=== PATIENT | female | born 1955 | race Caucasian/White ===

== ENCOUNTER 2016-07-03 01:39 | Emergency (ER) | payer SELFPAY ==
[~2016-07-03] VITALS: Ht 162.6 cm; Wt 68.0 kg
[~2016-07-03 01:39] MED LIST: LISI-603 PO; [UNRECOGNIZED DRUG - REMARK]
--- NOTE | 2016-07-03 01:55 | NUR ---
PT A/OX4 BREATHING EFFORTLESSLY ON ROOM AIR, PT STATES SHE HAS BEEN HAVING LEFT UPPER QUADRANT PAIN X 2 DAYS WITH ONE EPISODE OF VOMITING, PT ON MONITOR, IV PLACED, MD IN ROOM, PT IN GOWN, URINE COLLECTED, WILL CONTINUE TO MONITOR.
[2016-07-03] MEDS ORDERED: IV NS 0.9% 250 ML IV ONE (02:15)
[2016-07-03] MEDS ORDERED: IOHEXOL-350 100 ML VIAL IV ONE (02:15)
[2016-07-03] MEDS ORDERED: HYDROMORPHONE 1 MG/1 ML DISP.SYRIN ONE (02:21)
[2016-07-03] MEDS ORDERED: ONDANSETRON HCL/PF 4 MG/2 ML VIAL ONE ×2 (02:22→05:14)
[2016-07-03] MEDS ORDERED: IV NS 0.9% 1,000 ML ONE (02:22)
[2016-07-03] MEDS ORDERED: IV SET PRIMARY 1 EA INFUS.SET MC ONE (02:22)
[2016-07-03] MEDS ORDERED: ONDANSETRON HCL/PF 4 MG/2 ML VIAL IVP ONE (02:30)
[2016-07-03] MEDS ORDERED: HYDROMORPHONE INJ 2 MG/ML DISP.SYRIN IV ONE (02:30)
[2016-07-03] MEDS ORDERED: IV NS 0.9% 1,000 ML BAG IV ONE (02:30)
[2016-07-03 02:36] LABS: BASOPHILS % (AUTO) 0.3 % (0.0-2.0); EOSINOPHILS # (AUTO) 0.1 /CMM (0.0-0.7); EOSINOPHILS % (AUTO) 1.7 % (0.0-6.0); HEMATOCRIT 39 % (33-45); HEMOGLOBIN 13.3 g/dL (11.5-14.8); LYMPHOCYTES # (AUTO) 0.7 /CMM (0.8-4.8); MEAN CORPUSCULAR HEMOGLOBIN 29 PG (26.0-33.0); MEAN CORPUSCULAR HGB CONC 34 g/dl (31.0-36.0); MEAN CORPUSCULAR VOLUME 85 fL (82-100); MONOCYTES # (AUTO) 0.4 /CMM (0.1-1.30); MONOCYTES % (AUTO) 6.3 % (2.0-12.0); NEUTROPHILS # (AUTO) 5.4 /CMM (1.8-8.9); NEUTROPHILS % (AUTO) 81.7 % (43.0-81.0); PLATELET COUNT (AUTO) 255 /CMM (150-450); RDW COEFFICIENT OF VARIATION 13.5 (11.5-15.0); RED BLOOD CELL COUNT(AUTO) 4.61 MIL/uL (4.0-5.2); WHITE BLOOD COUNT (AUTO) 6.7 K/uL (4.3-11.0)
[2016-07-03 02:47] LABS: CALCIUM, SERUM 8.4 mg/dL (8.5-10.1); CARBON DIOXIDE 25 mmol/L (21-32); CHLORIDE 104 mmol/L (98-107); CREATININE 0.8 mg/dL (0.6-1.3); GFR 73 mL/min (>60); GLUCOSE 122 mg/dL (74-106); POTASSIUM 3.6 mmol/L (3.5-5.1); SODIUM SERUM 139 mmol/L (136-145); UREA NITROGEN, BLOOD 10 mg/dL (7-18)
[2016-07-03 02:53] LABS: ALANINE AMINOTRANSFERASE 37 U/L (12-78); ALBUMIN 4.2 g/dL (3.4-5.0); ALKALINE PHOSPHATASE 109 U/L (46-116); ASPARTATE AMINOTRANSFERASE 29 U/L (15-37); BILIRUBIN,DIRECT 0.1 mg/dL (0.0-0.2); LIPASE 155 U/L (73-393); TOTAL PROTEIN, SERUM 8.1 g/dL (6.4-8.2)
[2016-07-03 02:54] LABS: TROPONIN I < 0.017 ng/mL (0.00-0.056)
[2016-07-03 03:04] LABS: INR 0.94 (0.87-1.13)
--- NOTE | 2016-07-03 03:47 | NUR ---
PT SLEEPING IN BED IN NO APPARENT DISTRESS, MD MADE AWARE WILL CONTINUE TO MONITOR.
[2016-07-03] MEDS ORDERED: BENZTROPINE MESYLATE (2MG/2ML) 2 MG/2 ML AMPUL IM ONE (05:30)
[2016-07-03] MEDS ORDERED: ONDANSETRON HCL/PF - ER 4 MG/2 ML VIAL IV ONE (05:30)
[2016-07-03] MEDS ORDERED: METOCLOPRAMIDE HCL 10 MG/2 ML VIAL IV ONE (05:30)
--- NOTE | 2016-07-03 05:34 | NUR ---
Patient discharged to home in stable condition. Written and verbal after care instructions given. Patient verbalizes understanding of instruction.IV removed. Catheter intact and site benign. Pressure and 4x4 applied to site. No bleeding noted.
[2016-07-03 05:35] VITALS: BP 124/84
== END 2016-07-03 05:35 | disposition home or self-care (01) ==
LOC: ER 01:41
DX: R10.12 Left upper quadrant pain (principal); R11.2 Nausea with vomiting, unspecified
CPT/HCPCS: 36415; 74160; 80048; 80076; 83690; 84484; 85025; 85730; 93005; 96361; 96374; 96375; 96376; 99285; A4606; J1170; J2405 ×2; J7030; J7050; Q9967; Z7610

== ENCOUNTER 2016-07-03 13:21 | Emergency (ER) | payer SELFPAY ==
[~2016-07-03] VITALS: Ht 162.6 cm; Wt 68.0 kg
--- NOTE | 2016-07-03 13:33 | NUR ---
PT CAME IN FOR ABD PAIN, WAS JUST HERE THIS MORNING WITH NO RELIEF. VSS. NAD NOTED. SAFETY AND COMFORT MEASURES PROVIDED. WILL MONITOR.
--- NOTE | 2016-07-03 13:40 | NUR ---
IV ACCESS STARTED. BLOOD DRAWN FOR LABS. PT MEDICATED ORDERED.
[2016-07-03] MEDS ORDERED: LIDOCAINE VISCOUS 2% UD 15 ML UDC ONE (13:45)
[2016-07-03] MEDS ORDERED: MAG HYDROX/AL HYDROX/SIMETH 30 ML UDC ONE (13:45)
[2016-07-03] MEDS ORDERED: ONDANSETRON HCL/PF 4 MG/2 ML VIAL ONE (13:45)
[2016-07-03] MEDS ORDERED: MORPHINE SULFATE INJ 4 MG/ML DISP.SYRIN ONE (13:45)
[2016-07-03] MEDS ORDERED: IV NS 0.9% 500 ML IV ONE (13:46)
[2016-07-03] MEDS ORDERED: IV SET PRIMARY 1 EA INFUS.SET MC ONE (13:46)
[2016-07-03] MEDS ORDERED: FAMOTIDINE/PF INJ 20 MG/2 ML VIAL IV ONE ×2 (13:46→14:00)
[2016-07-03 13:49] LABS: HEMATOCRIT 38 % (33-45); HEMOGLOBIN 12.7 g/dL (11.5-14.8); MEAN CORPUSCULAR HEMOGLOBIN 29 PG (26.0-33.0); MEAN CORPUSCULAR HGB CONC 34 g/dl (31.0-36.0); MEAN CORPUSCULAR VOLUME 86 fL (82-100); NEUTROPHILS % (AUTO) 74.5 % (43.0-81.0); PLATELET COUNT (AUTO) 253 /CMM (150-450); RDW COEFFICIENT OF VARIATION 12.8 (11.5-15.0); RED BLOOD CELL COUNT(AUTO) 4.41 MIL/uL (4.0-5.2); WHITE BLOOD COUNT (AUTO) 4.7 K/uL (4.3-11.0)
[2016-07-03 13:50] LABS: BASOPHILS % (AUTO) 0.2 % (0.0-2.0); EOSINOPHILS % (AUTO) 0.7 % (0.0-6.0); LYMPHOCYTES # (AUTO) 0.7 /CMM (0.8-4.8); LYMPHOCYTES % (AUTO) 15.9 % (20.0-44.0); MONOCYTES # (AUTO) 0.4 /CMM (0.1-1.30); MONOCYTES % (AUTO) 8.7 % (2.0-12.0); NEUTROPHILS # (AUTO) 3.6 /CMM (1.8-8.9)
[2016-07-03 13:57] LABS: CALCIUM, SERUM 8.4 mg/dL (8.5-10.1); CREATININE 0.8 mg/dL (0.6-1.3); POTASSIUM 3.8 mmol/L (3.5-5.1)
[2016-07-03] MEDS ORDERED: MORPHINE SULFATE INJ 2 MG/ML DISP.SYRIN IV ONE (14:00)
[2016-07-03] MEDS ORDERED: IV NS 0.9% 500 ML BAG IV ONE (14:00)
[2016-07-03] MEDS ORDERED: MAG HYDROX/AL HYDROX/SIMETH 30 ML UDC PO ONE (14:00)
[2016-07-03] MEDS ORDERED: LIDOCAINE VISCOUS 2% UD 15 ML UDC MM ONE (14:00)
[2016-07-03] MEDS ORDERED: ONDANSETRON HCL/PF 4 MG/2 ML VIAL IVP ONE (14:00)
[2016-07-03] MEDS ORDERED: ACETAMINOPHEN ES 500 MG TABLET ONE (14:03)
[2016-07-03] MEDS ORDERED: ACETAMINOPHEN 325 MG TABLET PO ONE (14:30)
[2016-07-03 14:40] VITALS: BP 139/87
--- NOTE | 2016-07-03 14:46 | NUR ---
IV removed. Catheter intact and site benign. Pressure and 4x4 applied to site. No bleeding noted.Patient discharged to home in stable condition. Written and verbal after care instructions given. Patient verbalizes understanding of instruction.
== END 2016-07-03 14:51 | disposition home or self-care (01) ==
LOC: ER 13:23
DX: K29.70 Gastritis, unspecified, without bleeding (principal); I10 Essential (primary) hypertension
CPT/HCPCS: 36415; 80048; 85025; 96361; 96374; 96375; 99285; A4606; J2270; J2405; J3490; J7040; Z7610

== ENCOUNTER 2021-07-26 20:46 | Emergency (ER) | payer MEDICAID ==
[~2021-07-26] VITALS: Ht 165.1 cm; Wt 72.6 kg
[~2021-07-26 20:46] MED LIST changes: +ASPI-1420 PO; +HYDR25TA4 PO; +HYDR453.3 TP; -LISI-603 PO; +LISI10TA29 PO; +LISI20TA30 PO
--- NOTE | 2021-07-26 21:20 | NUR ---
BIBS FROM HOME C/O R FOOT PAIN. PT AMBULATORY WITH STEADY GAIT. A/OX4. TOLERATING R/A WELL WITH NO SOB.
--- NOTE | 2021-07-26 21:37 | NUR ---
BUYER GRAIN AT PT'S BEDSIDE
[2021-07-26] MEDS ORDERED: IBUP-1955 PO (22:32)
[2021-07-26] MEDS ORDERED: IBUPROFEN 600 MG TABLET ONE (22:35)
[2021-07-26 22:37] VITALS: BP 139/71
--- NOTE | 2021-07-26 22:40 | NUR ---
Patient discharged to home in stable condition. Written and verbal after care instructions given. Patient verbalizes understanding of instruction.
[2021-07-26] MEDS ORDERED: IBUPROFEN 600 MG TABLET PO ONE (23:00)
== END 2021-07-26 23:52 | disposition home or self-care (01) ==
LOC: ER 20:52 → MERGE 20:52 → ER 23:52
DX: M79.671 Pain in right foot (principal); I10 Essential (primary) hypertension; Z79.899 Other long term (current) drug therapy
CPT/HCPCS: 73630-TC

== ENCOUNTER 2021-09-02 19:03 | Emergency (ER) | payer MEDICAID ==
[~2021-09-02] VITALS: Ht 165.1 cm; Wt 72.6 kg
[~2021-09-02 19:03] MED LIST changes: +IBUP-1955 PO
[2021-09-02] MEDS ORDERED: CLIN300C12 PO (20:25)
--- NOTE | 2021-09-02 20:29 | NUR ---
Patient discharged to home in stable condition. Written and verbal after care instructions given. Patient verbalizes understanding of instruction.
[2021-09-02 20:30] VITALS: BP 180/89
== END 2021-09-02 20:30 | disposition home or self-care (01) ==
LOC: ER 19:14
DX: H92.01 Otalgia, right ear (principal); I10 Essential (primary) hypertension; Z79.899 Other long term (current) drug therapy

== ENCOUNTER 2022-12-24 22:05 | Emergency (ER) | payer MEDICARE, OTHER ==
[~2022-12-24] VITALS: Ht 167.6 cm; Wt 68.0 kg
[~2022-12-24 22:05] MED LIST changes: +CEPH500C2 PO; +CLIN300C12 PO
[2022-12-24 22:42] VITALS: TEMP 98.2
[2022-12-24] MEDS ORDERED: MORPHINE SULFATE INJ 2 MG/ML DISP.SYRIN ONE (22:59)
[2022-12-24] MEDS ORDERED: IV NS 0.9% 1,000 ML BAG IV ONE (23:00)
[2022-12-24] MEDS ORDERED: ONDANSETRON HCL/PF 4 MG/2 ML VIAL IVP ONE (23:00)
[2022-12-24] MEDS ORDERED: MORPHINE SULFATE INJ 2 MG/ML DISP.SYRIN IV ONE (23:00)
[2022-12-24 23:23] LABS: BASOPHILS # (AUTO) 0.1 K/uL (0.0-0.2); BASOPHILS % (AUTO) 0.8 % (0.0-2.0); EOSINOPHILS # (AUTO) 0.1 K/uL (0.0-0.7); EOSINOPHILS % (AUTO) 2.2 % (0.0-6.0); HEMATOCRIT 37 % (33-45); HEMOGLOBIN 12.3 g/dL (11.5-14.8); LYMPHOCYTES # (AUTO) 1.9 K/uL (0.8-4.8); LYMPHOCYTES % (AUTO) 29.8 % (20.0-44.0); MEAN CORPUSCULAR HEMOGLOBIN 29 PG (26.0-33.0); MEAN CORPUSCULAR HGB CONC 33 g/dl (31.0-36.0); MEAN CORPUSCULAR VOLUME 87 fL (82-100); MONOCYTES # (AUTO) 0.5 K/uL (0.1-1.30); MONOCYTES % (AUTO) 8.3 % (2.0-12.0); NEUTROPHILS # (AUTO) 3.8 K/uL (1.8-8.9); NEUTROPHILS % (AUTO) 58.9 % (43.0-81.0); PLATELET COUNT (AUTO) 296 K/uL (150-450); RED BLOOD CELL COUNT(AUTO) 4.23 MIL/uL (4.0-5.2); RED CELL DISTRIBUTION WIDTH 13.8 % (11.5-15.0); WHITE BLOOD COUNT (AUTO) 6.5 K/uL (4.3-11.0)
[2022-12-24 23:25] LABS: APPEARANCE,URINE SLIGHTLY CLOUDY (CLEAR); BILIRUBIN,URINE NEGATIVE (NEGATIVE); BLOOD, URINE 1+ Ery/uL (NEGATIVE); COLOR,URINE YELLOW (YELLOW); KETONES,URINE NEGATIVE (NEGATIVE); LEUKOCYTE ESTERASE ,URINE 1+ (NEGATIVE); NITRITE, URINE POSITIVE (NEGATIVE); PH,URINE 5.5 (5.0-8.0); PROTEIN,URINE NEGATIVE (NEGATIVE); UGLUCOSE NEGATIVE (NEGATIVE); UROBILINOGEN,URINE 0.2 EU/dL (0.2)
[2022-12-24 23:31] LABS: CALCIUM, SERUM 9.2 mg/dL (8.5-10.1); CREATININE 0.6 mg/dL (0.6-1.3); POTASSIUM 3.7 mmol/L (3.5-5.1); PREGNANCY TEST URINE QUAL NEGATIVE (NEGATIVE)
[2022-12-24 23:39] LABS: ALBUMIN 3.8 g/dL (3.4-5.0); BILIRUBIN,DIRECT 0.1 mg/dL (0.0-0.2); BILIRUBIN,TOTAL 0.5 mg/dL (0.2-1.0); TOTAL PROTEIN, SERUM 7.7 g/dL (6.4-8.2)
[2022-12-24 23:48] LABS: ADD URINE CULTURE YES; BACTERIA,URINE 3+ /HPF (None Seen); WBC,URINE 21-50 /HPF (0-3)
[2022-12-25] MEDS ORDERED: CEPH500C2 PO (00:13)
[2022-12-25] MEDS ORDERED: OMEP40CA21 PO (00:13)
[2022-12-25 00:24] VITALS: BP 121/76; O2SAT 98
== END 2022-12-25 00:24 | disposition home or self-care (01) ==
LOC: ER 22:12
DX: N39.0 Urinary tract infection, site not specified (principal); K29.70 Gastritis, unspecified, without bleeding; I10 Essential (primary) hypertension
CPT/HCPCS: 99283; 96374; 96361; 85025; 80048; 83690; 80076; 84703; 81001; 36415; J2405; J7030; 87086-TC; J2270

== ENCOUNTER 2023-08-17 10:52 | Emergency (ER) | payer MEDICARE, OTHER ==
[~2023-08-17] VITALS: Ht 165.1 cm; Wt 68.0 kg
[~2023-08-17 10:52] MED LIST changes: +OMEP40CA21 PO
[2023-08-17] MEDS ORDERED: IBUPROFEN 600 MG TABLET ONE (11:26)
[2023-08-17] MEDS ORDERED: BENZONATATE 100 MG CAPSULE PO ONE (11:26)
[2023-08-17] MEDS: BENZONATATE 100 MG CAPSULE PO PRN (11:28)
[2023-08-17] MEDS: IBUPROFEN 600 MG TABLET PO ONE (11:28)
[2023-08-17] MEDS ORDERED: BENZ-13 PO (12:19)
[2023-08-17] MEDS ORDERED: ALBU18HF2 INH (12:19)
[2023-08-17 12:29] VITALS: BP 165/100; TEMP 98.9; O2SAT 97
== END 2023-08-17 12:30 | disposition home or self-care (01) ==
LOC: ER 11:49
DX: R05.9 Cough, unspecified (principal); I10 Essential (primary) hypertension; Z79.899 Other long term (current) drug therapy
CPT/HCPCS: 71045-TC

== ENCOUNTER 2024-10-03 21:53 | Emergency (ER) | payer MEDICARE, OTHER ==
[~2024-10-03] VITALS: Ht 165.1 cm; Wt 68.0 kg
[~2024-10-03 21:53] MED LIST changes: +ALBU18HF2 INH; +BENZ-13 PO
[2024-10-03 23:06] LABS: PLATELET COUNT (AUTO) 280 K/uL (150-450); RED BLOOD CELL COUNT(AUTO) 4.14 MIL/uL (4.0-5.2); RED CELL DISTRIBUTION WIDTH 14.0 % (11.5-15.0); WHITE BLOOD COUNT (AUTO) 5.6 K/uL (4.3-11.0)
[2024-10-03 23:14] LABS: CALCIUM, SERUM 8.8 mg/dL (8.5-10.1); CREATININE 0.6 mg/dL (0.6-1.3); SODIUM SERUM 141.0 mmol/L (136-145); UREA NITROGEN, BLOOD 13.0 mg/dL (7-18)
[2024-10-03 23:20] LABS: ASPARTATE AMINOTRANSFERASE 24.0 U/L (15-37); TOTAL PROTEIN, SERUM 7.1 g/dL (6.4-8.2)
[2024-10-03] MEDS ORDERED: LISI20TA30 PO (23:27)
[2024-10-03] MEDS: IV NS 0.9% 1,000 ML BAG IV ONE (23:38)
[2024-10-03] MEDS: LISINOPRIL (20MG) 20 MG TABLET PO SCH (23:39)
[2024-10-03] MEDS: KETOROLAC TROMETHAMINE 15 MG/ML VIAL IV ONE (23:39)
[2024-10-04] MEDS: hydrALAZINE HCL IV 20 MG VIAL IV ONE (01:14)
[2024-10-04] MEDS ORDERED: HYDR25TA4 PO (01:17)
[2024-10-04 05:20] VITALS: BP 154/81; TEMP 98; O2SAT 98
== END 2024-10-04 05:21 | disposition home or self-care (01) ==
LOC: ER 21:56
DX: R51.9 Headache, unspecified (principal); R07.89 Other chest pain; M79.602 Pain in left arm; H53.2 Diplopia; I10 Essential (primary) hypertension; Z79.82 Long term (current) use of aspirin; Z79.899 Other long term (current) drug therapy
CPT/HCPCS: 99285; 96374; 71045; 96361; 93005; 85025; 36415 ×2; 80053; 84484 ×2; 96375; J1885; J7030; J0360